=== PATIENT | female | born 1980 | race Caucasian/White ===

== ENCOUNTER 2023-12-29 00:41 | Day surgery (SDC) | payer OTHER, SELFPAY ==
[2023-12-16 14:36] VITALS: BMI 49.4
--- NOTE | 2023-12-16 14:37 | PC.NURSE ---
Report to the Outpatient Waiting Room, entrance under the green pavilion located off [facility], at time _0900_ on date _[id number]_. Planned Procedure Time: _1100_. Time changes happen often and if your time is changed the preop area will call you the afternoon before. - You and your visitor will be asked to self-screen and do not enter if you have any COVID symptoms. - A mask is optional within the hospital at this time. Patients may have clear liquids (water, carbonated beverages, clear teas, apple juice) until 3 hours prior to surgery with a maximum of 20 ounces. - No food from midnight until time of surgery Take the following medications with a SIP of water the morning of surgery: Vraylar, Wixela, Flonase, Gabapentin, Lamotrigine, Levothyroxine, and [place]. DO NOT STOP ANY OF YOUR OTHER PRESCRIPTION MEDICATIONS PRIOR TO SURGERY ?EXCEPT THE FOLLOWING Medications to discontinue per physician ____None Date to take last dose Please no make-up, nail spanish, hairspray, perfume, deodorant, or body powder the day of surgery. No jewelry (including any body piercings) or valuables the day of surgery, leave them at home. Please take a shower or bath the night before, or the morning of, surgery with an antibacterial soap. Wear comfortable, loose fitting clothing. - Jewelry must be removed prior to entering the operating room. Rings and piercings that are not removed may be cut off. - The hospital will not accept responsibility for valuables. - Please leave all valuables, including medications, at home the day of surgery. If you are going home after surgery, a licensed school bus driver/mechanic must drive you home. - NO public transportation without another adult if you receive anesthesia. - We recommend that an adult stay with you for 24 hours following discharge. - We also recommend that you do not drive, make important decision, drink alcoholic beverages, or take any drugs that were not prescribed by your health care provider for at least 24 hours after your discharge time. Follow any additional instructions given to you from your surgeon. If you or anyone in your household have experienced Covid symptoms in the past week, please notify your surgeon or the nurse liaison at the phone number below for possible testing. Telephone instructions given to __Meagan and asked if any additional questions and then verbalized understanding. Patient advised to call surgeon office or pre surgery nurse liaison [phone] if any additional questions.
--- NOTE | 2023-12-26 11:06 | PM.IMHP ---
H&P: HPI History of Present Illness Date/Time: 12/26/23 11:06 Chief Complaint: Intrinsic sphincter deficiency Narrative: This is a patient with stress incontinence. 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 She presents for a bulking agent Review of Systems Review of Systems: All systems reviewed & are unremarkable except as noted in HPI and below PMFSH Social History Social History Smoking status: Never smoker Substance use type: marijuana Other substance usage details: 4 times a week. Living arrangements: with family Spiritual care concerns: No Meds Home Medications and Allergies Home Medications Medication Instructions Recorded Confirmed Type cariprazine 1.5 mg capsule 1.5 mg PO DAILY 12/16/23 12/16/23 History (Vraylar) cetirizine 10 mg tablet (Zyrtec) 10 mg PO DAILY 12/16/23 12/16/23 History clonazepam 1 mg tablet 1 mg PO HS 12/16/23 12/16/23 History erenumab-aooe 140 mg/mL 140 mg subcut MONTHLY 12/16/23 12/16/23 History subcutaneous auto-injector (Aimovig Autoinjector) fluticasone 500 mcg-salmeterol 50 1 inh inhalation BID 12/16/23 12/16/23 History mcg/dose blistr powdr for inhalation (Wixela Inhub) fluticasone propionate 50 1 spray intranasal DAILY 12/16/23 12/16/23 History mcg/actuation nasal spray,suspension gabapentin 300 mg capsule 300 mg PO TID 12/16/23 12/16/23 History lamotrigine 200 mg tablet 25 mg PO DAILY 12/16/23 12/16/23 History levothyroxine 25 mcg tablet 25 mcg PO DAILY 12/16/23 12/16/23 History lithium carbonate 300 mg 300 mg PO BID 12/16/23 12/16/23 History tablet,extended release montelukast 10 mg tablet 10 mg PO HS 12/16/23 12/16/23 History pantoprazole 40 mg tablet,delayed 40 mg PO BID 12/16/23 12/16/23 History release Allergies Allergy/AdvReac Type Severity Reaction Status Date / Time strawberry Allergy Intermediate Hives Verified 12/16/23 14:22 Exam Narrative: No mesh exposure No acute distress Normal breathing Alert orient x3 Assessment and Plan Assessment and plan (1) Intrinsic sphincter deficiency (ISD): Code(s): N36.42 - Intrinsic sphincter deficiency (ISD) Status: Acute Assessment and Plan: Urethral bulking agent. Understands risks of bleeding, infection, lack of efficacy, need for repeat procedures, obstructive voiding requiring catheterization. Agrees to proceed
--- NOTE | 2023-12-29 04:40 | WPDHPUPDATE1 ---
History and Physical Update Update Date/Time: 12/29/23 04:40 History and Physical has been reviewed, including an updated exam of the patient. There are NO changes in the patient's condition. Risks, benefits, and alternatives have been discussed and questions answered. Patient agrees to proceed with procedure.
[2023-12-29] MEDS: LACTATED RINGERS 1,000 ML 30 ML IV CONT (06:45)
[2023-12-29 07:14] VITALS: BP 132/82; PULSE 81; RESP 16; TEMP 36.6; O2SAT 98
[2023-12-29 07:26] LABS: Lithium 0.3 mmol/L (0.6-1.2)
--- NOTE | 2023-12-29 07:47 | WPDANESEPPF ---
Anes - Initial Pre Proc Eval Procedure: Operation Date: 12/29/23 08:00 Proposed Procedures p Cystoscopy, Injection Bulking Agent - Damián Doss MD Date/Time: 12/29/23 07:47 Surgeon: Damián oDss MD Pre Op Diagnosis: stress incont Patient Data Age: 43 Gender: F Height: 1.6 m Weight: 134.8 kg Last Vital Signs Temp 97.9 F 12/29/23 07:14 Pulse 81 12/29/23 07:14 Resp 16 12/29/23 07:14 BP 132/82 12/29/23 07:14 Pulse Ox 98 12/29/23 07:14 O2 Del Method Room Air 12/29/23 07:14 Allergies Allergy/AdvReac Type Severity Reaction Status Date / Time strawberry Allergy Intermediate Hives Verified 12/29/23 07:12 Home Medications Medication Instructions Recorded Confirmed Type cariprazine 1.5 mg capsule 1.5 mg PO DAILY 12/16/23 12/29/23 History (Vraylar) cetirizine 10 mg tablet (Zyrtec) 10 mg PO DAILY 12/16/23 12/29/23 History clonazepam 1 mg tablet 1 mg PO HS 12/16/23 12/29/23 History erenumab-aooe 140 mg/mL 140 mg subcut MONTHLY 12/16/23 12/29/23 History subcutaneous auto-injector (Aimovig Autoinjector) fluticasone 500 mcg-salmeterol 50 1 inh inhalation BID 12/16/23 12/29/23 History mcg/dose blistr powdr for inhalation (Wixela Inhub) fluticasone propionate 50 1 spray intranasal DAILY 12/16/23 12/29/23 History mcg/actuation nasal spray,suspension gabapentin 300 mg capsule 300 mg PO TID 12/16/23 12/29/23 History lamotrigine 200 mg tablet 25 mg PO DAILY 12/16/23 12/29/23 History levothyroxine 25 mcg tablet 25 mcg PO DAILY 12/16/23 12/29/23 History lithium carbonate 300 mg 300 mg PO BID 12/16/23 12/29/23 History tablet,extended release montelukast 10 mg tablet 10 mg PO HS 12/16/23 12/29/23 History pantoprazole 40 mg tablet,delayed 40 mg PO BID 12/16/23 12/29/23 History release Laboratory Tests 12/29/23 06:48 [place] 0.3 L mmol/L (0.6-1.2) Patient hx anesthesia problems: none Family hx anesthesia problems: none Results Review: All pre-operative results and documents have been reviewed as part of the pre-operative evaluation. [facility] Social History Social History Smoking status: Never smoker Substance use type: marijuana Other substance usage details: 4 times a week. Living arrangements: with family Spiritual care concerns: No Anes - Eval Final PreProcedure Day of Procedure 12/29/23 07:47 Patient weight: super morbidly obese Heart: regular rate and rhythm Lungs: clear to auscultation Airway: Mallampati scale class II Neurological: alert and oriented Last oral intake: >/= 8 hours ASA classification: III Emergent: no Anesthetic plan: proceed Anesthesia type and monitoring: general LMA and standard monitoring Results Review: All pre-operative results and documents have been reviewed as part of the pre-operative evaluation. Informed Consent: The patient's anesthetic plan and its attendant risks and benefits were discussed with the patient/family/POA. Questions were solicited and answers provided to the satisfaction of the patient/family/POA.
[2023-12-29] MEDS: ceFAZolin 3 GM/D5W 100 ML 100 ML IVPB (08:01)
[2023-12-29] MEDS: LIDOCAINE HCL 2% GEL UROJET 10 ML PKG MUCOUS MEM (08:11)
[2023-12-29 08:27] VITALS: BP 94/52; PULSE 104; RESP 12; TEMP 36.2; O2SAT 100
[2023-12-29 08:40] VITALS: BP 104/78; PULSE 99; RESP 20; O2SAT 100
--- NOTE | 2023-12-29 08:45 | SUR.PHASEI ---
0845: Simple mask removed.
[2023-12-29 08:55] VITALS: BP 110/76; PULSE 97; RESP 20; O2SAT 96
[2023-12-29 08:59] VITALS: BP 128/89; PULSE 93
[2023-12-29 09:30] VITALS: BP 127/88; PULSE 81
--- NOTE | 2023-12-29 10:53 | W.PM.PROC2 ---
Procedure Note - Detailed Date of Procedure 12/29/23 Pre-op Diagnosis Intrinsic sphincter deficiency Post-op Diagnosis Same Procedure Performed Cystoscopy with urethral injection of implant material [id number] Surgeon Damián Doss MD Anesthesia MAC and Local Indications This with stress incontinence due to intrinsic sphincter deficiency. She has had a previous sling procedure. She had about 50% efficacy. She would like a bulking agent to achieve enhanced continence. She understands risks of bleeding, infection, damage to urinary tract, urinary retention, need for repeat procedures. Of note body habitus may limit her efficacy from stress incontinence procedure Description of Procedure She was correctly identified. Informed consent obtained. She brought into the operating room. She was given monitored anesthesia care. A Time-out performed. She was given appropriate preop antibiotics. She was prepped and draped in the dorsal lithotomy position. Uro jet was applied to the urethra. Cystoscopy revealed a normal appearing bladder. There was no surgical artifact in the bladder. There was no tumors or stones. Urethra was open consistent with intrinsic sphincter deficiency. I chose a site mid urethra 2 cm distal to bladder neck. I injected bulking agent circumferentially forming large pillows coapting the urethra. I used 1-1/2 syringe total. There was excellent bulking effect. I left the bladder partially full. She was awakened transferred to PACU stable condition Estimated Blood Loss 0 Drains No Packing No Pathology None sent Complications No immediate complications Condition Stable Disposition PACU
== END 2023-12-29 09:40 | disposition home or self-care (01) ==
PROVIDERS: Anesthesiology; Visit Provider Urology
PROC: 3E0K8GC Introduction of Other Therapeutic Substance into Genitourinary Tract, Via Natural or Artificial Opening Endoscopic (ICD-10-PCS; CPT 51715; principal; 2023-12-29 08:00)
DX: N36.42 Intrinsic sphincter deficiency (ISD) (principal); N39.3 Stress incontinence (female) (male); F12.90 Cannabis use, unspecified, uncomplicated; E66.01 Morbid (severe) obesity due to excess calories; Z68.43 Body mass index [BMI] 50.0-59.9, adult; Z79.85 Long-term (current) use of injectable non-insulin antidiabetic drugs; Z79.51 Long term (current) use of inhaled steroids
CPT/HCPCS: 51715; 36415; 80178; J0690; J1100; J2405; J2704; J3010; J7120; L8606